=== PATIENT | female | born 1965 | race Caucasian/White ===

== ENCOUNTER 2017-10-07 13:21 | Inpatient (IN) | payer BC ==
[2017-10-07] MEDS: MECLIZINE 12.5 MG TAB PO (13:39)
[2017-10-07] MEDS: LORAZEPAM 2 MG INJ IV ×2 (13:40→15:44)
[2017-10-07 14:06] LABS: ADD MAN DIFF? NO
[2017-10-07 14:09] LABS: WHITE BLOOD COUNT 11.9 10^3/ul (4.8-10.8)
[2017-10-07 14:09] LABS: BASOPHIL # 0.1 10^3/ul (0.0-0.1); BASOPHILS % 0.9 % (0.0-2.0); EOSINOPHILS # 0.2 10^3/ul (0.0-0.5); EOSINOPHILS % 1.8 % (0.0-7.0); HEMATOCRIT 41.4 % (37.0-47.0); HEMOGLOBIN 13.3 g/dl (12.0-16.0); LYMPHOCYTES # 1.7 10^3/ul (0.8-2.9); LYMPHOCYTES % 13.9 % (15.0-51.0); MEAN CORPUSCULAR HEMOGLOBIN 25.5 pg (29.0-33.0); MEAN CORPUSCULAR HGB CONC 32.1 g/dl (32.0-37.0); MEAN CORPUSCULAR VOLUME 79.3 fl (82.0-101.0); MEAN PLATELET VOLUME 9.8 fl (7.4-10.4); MONOCYTE # 0.3 10^3/ul (0.3-0.9); MONOCYTES % 2.8 % (0.0-11.0); NEUTROPHIL # 9.5 10^3/ul (1.6-7.5); NEUTROPHILS % 80.1 % (39.0-77.0); PLATELET COUNT 317 10^3/UL (140-415); RED BLOOD COUNT 5.22 10^6/ul (4.20-5.40); RED CELL DISTRIBUTION WIDTH 12.9 % (11.5-14.5)
[2017-10-07 14:21] LABS: HEMOGLOBIN A1C 5.5 % (0-5.9)
[2017-10-07 14:32] LABS: INR 0.87; PROTIME 11.9 Sec (11.9-14.9); PT RATIO 0.9
[2017-10-07 14:33] LABS: ANION GAP 15 (8-16); BLOOD UREA NITROGEN 10 mg/dl (7-20); CALCIUM 8.9 mg/dl (8.4-10.2); CARBON DIOXIDE 27 mmol/L (21-31); CHLORIDE 104 mmol/L (97-110); CHOL/HDL RATIO 3.7 RATIO; CHOLESTEROL 205 mg/dl (100-200); CREATININE 0.56 mg/dl (0.44-1.00); GLUCOSE 162 mg/dl (70-220); HDL CHOLESTEROL 54 mg/dl (37-92); LDL CHOLESTEROL,CALCULATED 118 mg/dl; PARTIAL THROMBOPLASTIN TIME 25.4 Sec (25.0-35.0); POTASSIUM 3.5 mmol/L (3.5-5.1); SODIUM 142 mmol/L (135-144); TRIGLYCERIDES 163 mg/dl (0-149)
[2017-10-07 14:46] LABS: TROPONIN-I < 0.012 ng/ml (0.00-0.12)
[2017-10-07] MEDS: ASPIRIN 325 MG TAB PO (16:14)
[2017-10-07] MEDS ORDERED: ACETAMINOPHEN 325 MG TAB PO (16:30)
[2017-10-07] MEDS ORDERED: ONDANSETRON 4 MG INJ IV (16:30)
[2017-10-07] MEDS: SOD CHLORIDE 0.9% 100 ML (16:57)
[2017-10-07] MEDS ORDERED: IOHEXOL 100 ML (16:57)
[2017-10-07] MEDS ORDERED: NACL 0.9% 3 ML SYG IV (17:30)
[2017-10-07] MEDS: SOD CHLORIDE 0.9% 1,000 ML IV (17:30)
[2017-10-07] MEDS ORDERED: HYDROCODONE/APAP (5/325) TAB PO (17:30)
[2017-10-07 18:43] LABS: FREE T4 (FREE THYROXINE) 1.39 ng/dl (0.64-1.79)
[2017-10-07] MEDS ORDERED: LORAZEPAM 2 MG INJ IV (21:30)
[2017-10-07] MEDS: MECLIZINE 25 MG TAB PO (22:25)
[2017-10-07] MEDS: METOPROLOL 50 MG TAB PO (22:25)
[2017-10-08 07:47] LABS: ADD MAN DIFF? NO
[2017-10-08 07:55] LABS: BASOPHIL # 0.1 10^3/ul (0.0-0.1); BASOPHILS % 0.8 % (0.0-2.0); EOSINOPHILS # 0.2 10^3/ul (0.0-0.5); EOSINOPHILS % 1.7 % (0.0-7.0); HEMATOCRIT 40.7 % (37.0-47.0); HEMOGLOBIN 13.1 g/dl (12.0-16.0); LYMPHOCYTES # 2.1 10^3/ul (0.8-2.9); LYMPHOCYTES % 17.8 % (15.0-51.0); MEAN CORPUSCULAR HEMOGLOBIN 25.7 pg (29.0-33.0); MEAN CORPUSCULAR HGB CONC 32.2 g/dl (32.0-37.0); MEAN CORPUSCULAR VOLUME 79.8 fl (82.0-101.0); MEAN PLATELET VOLUME 9.7 fl (7.4-10.4); MONOCYTE # 0.9 10^3/ul (0.3-0.9); MONOCYTES % 7.5 % (0.0-11.0); NEUTROPHIL # 8.6 10^3/ul (1.6-7.5); NEUTROPHILS % 71.8 % (39.0-77.0); PLATELET COUNT 345 10^3/UL (140-415); RED CELL DISTRIBUTION WIDTH 12.9 % (11.5-14.5)
[2017-10-08 08:30] LABS: MAGNESIUM 2.2 mg/dl (1.7-2.5)
[2017-10-08 08:30] LABS: PHOSPHORUS 3.4 mg/dl (2.5-4.9)
[2017-10-08 08:36] LABS: ALANINE AMINOTRANSFERASE 29 IU/L (13-69); ALBUMIN/GLOBULIN RATIO 1.05; ALKALINE PHOSPHATASE 104 IU/L (42-121); ANION GAP 14 (8-16); ASPARTATE AMINO TRANSFERASE 24 IU/L (15-46); BILIRUBIN,INDIRECT 1.1 mg/dl (0-1.1); BILIRUBIN,TOTAL 1.1 mg/dl (0.2-1.3); BLOOD UREA NITROGEN 11 mg/dl (7-20); CARBON DIOXIDE 28 mmol/L (21-31); CHLORIDE 107 mmol/L (97-110); CREATININE 0.65 mg/dl (0.44-1.00); GLUCOSE 97 mg/dl (70-220); POTASSIUM 3.5 mmol/L (3.5-5.1); SODIUM 145 mmol/L (135-144); TOTAL PROTEIN 7.8 g/dl (6.1-8.1)
[2017-10-08] MEDS: METOPROLOL 50 MG TAB PO ×2 (08:44→21:07)
[2017-10-08] MEDS: MECLIZINE 25 MG TAB PO ×3 (08:44→21:08)
[2017-10-08] MEDS: ENOXAPARIN 40 MG/0.4 ML SYG SC (08:49)
[2017-10-08] MEDS: ONDANSETRON 4 MG INJ IV (11:17)
[2017-10-08] MEDS: ATORVASTATIN 80 MG TAB PO (21:07)
[2017-10-08] MEDS: predniSONE 20 MG TAB PO (21:07)
[2017-10-09] MEDS: PANTOPRAZOLE 40 MG INJ IV (05:29)
[2017-10-09 07:33] LABS: ADD MAN DIFF? NO
[2017-10-09 07:37] LABS: WHITE BLOOD COUNT 10.4 10^3/ul (4.8-10.8)
[2017-10-09 07:37] LABS: BASOPHIL # 0.1 10^3/ul (0.0-0.1); BASOPHILS % 0.8 % (0.0-2.0); HEMATOCRIT 43.7 % (37.0-47.0); HEMOGLOBIN 13.8 g/dl (12.0-16.0); LYMPHOCYTES # 1.8 10^3/ul (0.8-2.9); LYMPHOCYTES % 16.9 % (15.0-51.0); MEAN CORPUSCULAR HEMOGLOBIN 25.5 pg (29.0-33.0); MEAN CORPUSCULAR HGB CONC 31.6 g/dl (32.0-37.0); MEAN CORPUSCULAR VOLUME 80.8 fl (82.0-101.0); MEAN PLATELET VOLUME 9.7 fl (7.4-10.4); MONOCYTE # 0.1 10^3/ul (0.3-0.9); MONOCYTES % 1.2 % (0.0-11.0); NEUTROPHIL # 8.4 10^3/ul (1.6-7.5); NEUTROPHILS % 80.4 % (39.0-77.0); PLATELET COUNT 369 10^3/UL (140-415); RED BLOOD COUNT 5.41 10^6/ul (4.20-5.40); RED CELL DISTRIBUTION WIDTH 13.2 % (11.5-14.5)
[2017-10-09] MEDS: predniSONE 20 MG TAB PO (08:05)
[2017-10-09] MEDS: MECLIZINE 25 MG TAB PO ×3 (08:05→21:35)
[2017-10-09] MEDS: METOPROLOL 50 MG TAB PO ×2 (08:06→21:34)
[2017-10-09 08:08] LABS: ANION GAP 14 (8-16); BLOOD UREA NITROGEN 15 mg/dl (7-20); CARBON DIOXIDE 31 mmol/L (21-31); CHLORIDE 107 mmol/L (97-110); CREATININE 0.69 mg/dl (0.44-1.00); GLUCOSE 137 mg/dl (70-220); POTASSIUM 3.7 mmol/L (3.5-5.1); SODIUM 148 mmol/L (135-144)
[2017-10-09] MEDS: ENOXAPARIN 40 MG/0.4 ML SYG SC (08:11)
[2017-10-09 08:43] LABS: PHOSPHORUS 3.3 mg/dl (2.5-4.9)
[2017-10-09 08:43] LABS: MAGNESIUM 2.3 mg/dl (1.7-2.5)
[2017-10-09] MEDS: hydrALAzine 20 MG INJ IV (11:49)
[2017-10-09] MEDS: ONDANSETRON 4 MG INJ IV (11:49)
[2017-10-09] MEDS: ACETAMINOPHEN 325 MG TAB PO (13:59)
[2017-10-09] MEDS: ATORVASTATIN 80 MG TAB PO (21:33)
[2017-10-10] MEDS: PANTOPRAZOLE 40 MG INJ IV (06:04)
[2017-10-10 06:36] LABS: ADD MAN DIFF? NO
[2017-10-10 06:44] LABS: WHITE BLOOD COUNT 17.6 10^3/ul (4.8-10.8)
[2017-10-10 06:44] LABS: ABNORMAL IP MESSAGE 1; BASOPHIL # 0.1 10^3/ul (0.0-0.1); BASOPHILS % 0.6 % (0.0-2.0); EOSINOPHILS # 0.1 10^3/ul (0.0-0.5); EOSINOPHILS % 0.3 % (0.0-7.0); HEMATOCRIT 41.1 % (37.0-47.0); HEMOGLOBIN 13.2 g/dl (12.0-16.0); LYMPHOCYTES # 2.8 10^3/ul (0.8-2.9); MEAN CORPUSCULAR HEMOGLOBIN 25.8 pg (29.0-33.0); MEAN CORPUSCULAR HGB CONC 32.1 g/dl (32.0-37.0); MEAN CORPUSCULAR VOLUME 80.4 fl (82.0-101.0); MEAN PLATELET VOLUME 9.7 fl (7.4-10.4); MONOCYTE # 1.6 10^3/ul (0.3-0.9); MONOCYTES % 9.2 % (0.0-11.0); NEUTROPHIL # 12.9 10^3/ul (1.6-7.5); NEUTROPHILS % 73.2 % (39.0-77.0); PLATELET COUNT 362 10^3/UL (140-415); RED BLOOD COUNT 5.11 10^6/ul (4.20-5.40); RED CELL DISTRIBUTION WIDTH 12.6 % (11.5-14.5)
[2017-10-10 06:52] LABS: POSITIVE DIFF @See below
[2017-10-10 07:09] LABS: MAGNESIUM 2.2 mg/dl (1.7-2.5)
[2017-10-10 07:09] LABS: PHOSPHORUS 3.3 mg/dl (2.5-4.9)
[2017-10-10 07:10] LABS: ANION GAP 13 (8-16); BLOOD UREA NITROGEN 14 mg/dl (7-20); CALCIUM 8.7 mg/dl (8.4-10.2); CARBON DIOXIDE 30 mmol/L (21-31); CHLORIDE 107 mmol/L (97-110); CREATININE 0.81 mg/dl (0.44-1.00); GLUCOSE 100 mg/dl (70-220); POTASSIUM 3.4 mmol/L (3.5-5.1); SODIUM 147 mmol/L (135-144)
[2017-10-10] MEDS: predniSONE 20 MG TAB PO (09:22)
[2017-10-10] MEDS: MECLIZINE 25 MG TAB PO ×3 (09:24→21:56)
[2017-10-10] MEDS: METOPROLOL 50 MG TAB PO ×2 (09:25→22:02)
[2017-10-10] MEDS: ENOXAPARIN 40 MG/0.4 ML SYG SC (09:31)
[2017-10-10] MEDS: ACETAMINOPHEN 325 MG TAB PO (12:46)
[2017-10-10] MEDS: POTASSIUM CHLORIDE (SR) 10 MEQ TAB PO (14:28)
[2017-10-10] MEDS: ATORVASTATIN 80 MG TAB PO (21:56)
[2017-10-11] MEDS: PANTOPRAZOLE 40 MG INJ IV (05:52)
[2017-10-11 07:11] LABS: ADD MAN DIFF? NO
[2017-10-11 07:23] LABS: WHITE BLOOD COUNT 15.3 10^3/ul (4.8-10.8)
[2017-10-11 07:23] LABS: BASOPHIL # 0.1 10^3/ul (0.0-0.1); BASOPHILS % 0.5 % (0.0-2.0); EOSINOPHILS % 0.3 % (0.0-7.0); HEMATOCRIT 41.1 % (37.0-47.0); HEMOGLOBIN 13.3 g/dl (12.0-16.0); LYMPHOCYTES # 2.7 10^3/ul (0.8-2.9); LYMPHOCYTES % 17.8 % (15.0-51.0); MEAN CORPUSCULAR HGB CONC 32.4 g/dl (32.0-37.0); MEAN CORPUSCULAR VOLUME 80.3 fl (82.0-101.0); MONOCYTES % 6.6 % (0.0-11.0); NEUTROPHIL # 11.4 10^3/ul (1.6-7.5); NEUTROPHILS % 74.1 % (39.0-77.0); PLATELET COUNT 365 10^3/UL (140-415); RED BLOOD COUNT 5.12 10^6/ul (4.20-5.40); RED CELL DISTRIBUTION WIDTH 12.7 % (11.5-14.5)
[2017-10-11 07:51] LABS: PHOSPHORUS 3.9 mg/dl (2.5-4.9)
[2017-10-11 07:51] LABS: MAGNESIUM 2.1 mg/dl (1.7-2.5)
[2017-10-11 07:53] LABS: ANION GAP 13 (8-16); BLOOD UREA NITROGEN 17 mg/dl (7-20); CALCIUM 8.5 mg/dl (8.4-10.2); CARBON DIOXIDE 29 mmol/L (21-31); CHLORIDE 105 mmol/L (97-110); CREATININE 0.72 mg/dl (0.44-1.00); GLUCOSE 99 mg/dl (70-220); POTASSIUM 4.2 mmol/L (3.5-5.1); SODIUM 143 mmol/L (135-144)
[2017-10-11] MEDS: predniSONE 20 MG TAB PO (08:43)
[2017-10-11] MEDS: METOPROLOL 50 MG TAB PO ×2 (08:44→20:22)
[2017-10-11] MEDS: MECLIZINE 25 MG TAB PO ×3 (08:44→20:22)
[2017-10-11] MEDS: ENOXAPARIN 40 MG/0.4 ML SYG SC (08:49)
[2017-10-11] MEDS: ATORVASTATIN 80 MG TAB PO (20:22)
[2017-10-14] MEDS ORDERED: predniSONE 20 MG TAB PO (09:00)
== END 2017-10-11 20:33 | disposition home or self-care (01) | DRG 149 ==
LOC: TEL 10-09 16:37 → E/R 13:21 → TEL 16:10
PROVIDERS: Internal Medicine
DX: H81.10 Benign paroxysmal vertigo, unspecified ear (principal); E66.9 Obesity, unspecified; Z68.33 Body mass index [BMI] 33.0-33.9, adult; Z71.3 Dietary counseling and surveillance; I10 Essential (primary) hypertension; E78.5 Hyperlipidemia, unspecified
CPT/HCPCS: 36415; 70450; 70496; 70498; 70551; 71045; 80048; 80053; 80061; 82962; 83036; 83735; 84100; 84439; 84443; 84484; 84703; 85025; 85610; 85730; 92610; 93005; 93306; 96374; 97116; 97162; 97530; 99285-25